=== PATIENT | female | born 1985 | race African-American/Black ===

== ENCOUNTER 2016-10-18 14:59 | Emergency (ER) | payer OTHER ==
[~2016-10-18] VITALS: Ht 162.6 cm; Wt 62.1 kg
[~2016-10-18 14:59] MED LIST: CYCLOBENZAPRINE10 MG ORAL; IBUPROFEN600 MG ORAL; IBUPROFEN600 MG PO; IMITREX50 MG ORAL; NAPROSYN500 M1 ORAL; NKM; NORCO 5-325 TA1 EAC1 ORAL; NORCO 5-325 TA1 EACH ORAL; NORCO 5-325 TA1 EACH PO; NORCO 7.5-3251 EACH PO; TAMIFLU75 MG ORAL; TRAMADOL HCL50 MG PO; VICODIN 5-5001 EACH PO; ZOFRAN ODT4 MG ORAL; ZYRTEC10 MG ORAL
--- NOTE | 2016-10-18 15:38 | Emergency Room Report ---
History of Present Illness General Chief Complaint: Chest Pain Source: Patient Present Illness HPI Patient is a 31-year-old female presented after having increased left sided chest pain. Patient was noted to have sharp pain which began approximately one hour prior to arrival. Patient reported having some cough prior day. She denied any definite fever. Patient denies recent trauma. She reports having no prior cardiac history. She states that she had nonproductive cough. She had not been having any leg pain or swelling. Patient prior history of asthma. Allergies: Coded Allergies: No Known Allergies (Unverified , 05/18/12) Patient History Past Medical History: see triage record Last Menstrual Period: 10/15/16 Now: No Reviewed Nursing Documentation: PMH: Agreed, PSxH: Agreed Nursing Documentation-PMH Hx Hypertension: Yes Hx Asthma: Yes Review of Systems All Other Systems: negative except mentioned in HPI Physical Exam Vital Signs Date Time Temp Pulse Resp B/P Pulse Ox O2 Delivery O2 Flow Rate FiO2 10/18/16 15:02 81 16 112/72 99 Room Air Sp02 EP Interpretation: reviewed, normal General Appearance: normal inspection, well appearing, no apparent distress, alert, GCS 15 Head: atraumatic ENT: normal ENT inspection, hearing grossly normal, normal voice Neck: normal inspection, full range of motion, supple, no bony tend Respiratory: normal inspection, lungs clear, normal breath sounds, no respiratory distress, no retraction, no wheezing Cardiovascular #1: regular rate, rhythm, no edema Gastrointestinal: normal inspection, normal bowel sounds, non tender, soft, no guarding, no hernia Genitourinary: no CVA tenderness Musculoskeletal: normal inspection, back normal, normal range of motion Neurologic: normal inspection, alert, responsive, speech normal Psychiatric: normal inspection, judgement/insight normal, mood/affect normal Skin: normal inspection, normal color, no rash Medical Decision Making Diagnostic Impression: Primary Impression: Pleurisy ER Course Patient presented for chest pain.Differential diagnosis included but was not limited to acute coronary syndrome, pulmonary embolism, pneumonia, aortic dissection, shingles, pneumothorax, aortic dissection, esophageal rupture, pericarditis. Because of complexity of patient's case laboratory testing and imaging studies were ordered.The EKG normal sinus rhythm with rate [address] or T wave changes.The patient shows no evident cardiac risk factors. A chest x-ray one view interpreted by me showed no evident pneumothorax normal cardiac size. The patient has no GI symptoms and this appears to be a pulmonary or chest wall pain. A d-dimer was negative. The patient is advised to follow up with primary care doctor in 1-2 days. Patient is advised to return if any worsening condition or if any changes in status that are concerning. Labs Test 10/18/16 15:45 White Blood Count 5.8 K/UL (4.8-10.8) Red Blood Count 4.11 M/UL (4.20-5.40) Hemoglobin 12.6 G/DL (12.0-16.0) Hematocrit 39.1 % (37.0-47.0) Mean Corpuscular Volume 95 FL (80-99) Mean Corpuscular Hemoglobin 30.5 PG (27.0-31.0) Mean Corpuscular Hemoglobin Concent 32.1 G/DL (32.0-36.0) Red Cell Distribution Width 12.9 % (11.6-14.8) Platelet Count 218 K/UL (150-450) Mean Platelet Volume 7.4 FL (6.5-10.1) Neutrophils (%) (Auto) 38.0 % (45.0-75.0) Lymphocytes (%) (Auto) 50.9 % (20.0-45.0) Monocytes (%) (Auto) 6.3 % (1.0-10.0) Eosinophils (%) (Auto) 3.4 % (0.0-3.0) Basophils (%) (Auto) 1.3 % (0.0-2.0) D-Dimer 62 ng/mL (<500) Sodium Level 138 mEQ/L (135-145) Potassium Level 3.8 mEQ/L (3.4-4.9) Chloride Level 101 mEQ/L (98-107) Carbon Dioxide Level 22 mEQ/L (20-30) Anion Gap 15 (5-15) Blood Urea Nitrogen 9 mg/dL (7-23) Creatinine 0.9 mg/dL (0.5-0.9) Estimat Glomerular Filtration Rate > 60 mL/min (>60) Glucose Level 87 mg/dL (74-106) Calcium Level 8.7 mg/dL (8.6-10.2) Total Bilirubin < 0.2 mg/dL (0.0-1.2) Aspartate Amino Transf (AST/SGOT) 21 U/L (5-40) Alanine Aminotransferase (ALT/SGPT) 19 U/L (3-33) Alkaline Phosphatase 35 U/L (35-104) Total Creatine Kinase 90 U/L (26-140) Creatine Kinase MB < 1.5 ng/mL (< 3.8) Creatine Kinase MB Relative Index 1.6 Troponin I < 0.30 ng/mL (<=0.30) Pro-B-Type Natriuretic Peptide 65 pg/mL (0-125) Total Protein 6.3 g/dL (6.6-8.7) Albumin 3.8 g/dL (3.5-5.2) Globulin 2.5 g/dL Albumin/Globulin Ratio 1.5 (1.0-2.7) Lipase 39 U/L (< 60) EKG Diagnostic Results Rate: normal Rhythm: NSR ST Segments: no acute changes Last Vital Signs Date Time Temp Pulse Resp B/P Pulse Ox O2 Delivery O2 Flow Rate FiO2 10/18/16 15:19 81 16 Room Air 10/18/16 15:02 112/72 99 Status: improved Disposition: HOME, SELF-CARE Condition: Stable Scripts Albuterol Sulfate* (ALBUTEROL SULFATE MDI*) 8.5 Gm Hfa.aer.ad 2 PUFF INH Q4H, #1 INH 0 Refills Prov: Adan Dela Cruz 10/18/16 Ibuprofen* (MOTRIN*) 600 Mg Tablet 600 MG ORAL Q8H Y for For Pain, #30 TAB 0 Refills Prov: Adan Dela Cruz 10/18/16 Adan Dela Cruz Oct 18, 2016 15:38
[2016-10-18 15:51] VITALS: BP 105/55
[2016-10-18 16:02] LABS: BASOPHILS % (AUTO) 1.3 % (0.0-2.0); EOSINOPHILS % (AUTO) 3.4 % (0.0-3.0); LYMPHOCYTES % (AUTO) 50.9 % (20.0-45.0); MEAN CORPUSCULAR HEMOGLOBIN 30.5 PG (27.0-31.0); MEAN CORPUSCULAR HGB CONC 32.1 G/DL (32.0-36.0); MEAN CORPUSCULAR VOLUME 95 FL (80-99); MEAN PLATELET VOLUME 7.4 FL (6.5-10.1); MONOCYTES % (AUTO) 6.3 % (1.0-10.0); PLATELET COUNT 218 K/UL (150-450); RED BLOOD COUNT 4.11 M/UL (4.20-5.40); RED CELL DISTRIBUTION WIDTH 12.9 % (11.6-14.8); WHITE BLOOD COUNT 5.8 K/UL (4.8-10.8)
[2016-10-18 16:26] LABS: ALANINE AMINOTRANSFERASE 19 U/L (3-33); ALBUMIN/GLOBULIN RATIO 1.5 (1.0-2.7); ANION GAP 15 (5-15); ASPARTATE AMINO TRANSFERASE 21 U/L (5-40); CALCIUM 8.7 mg/dL (8.6-10.2); CARBON DIOXIDE 22 mEQ/L (20-30); CHLORIDE 101 mEQ/L (98-107); CREATININE 0.9 mg/dL (0.5-0.9); GLOMERULAR FILTRATION RATE > 60 mL/min (>60); HEMOLYSIS 6; LIPASE 39 U/L (< 60); POTASSIUM 3.8 mEQ/L (3.4-4.9); SODIUM 138 mEQ/L (135-145); TOTAL PROTEIN 6.3 g/dL (6.6-8.7); TROPONIN I < 0.30 ng/mL (<=0.30)
[2016-10-18 16:37] LABS: CKMB < 1.5 ng/mL (< 3.8)
[2016-10-18] MEDS ORDERED: IBUPROFEN600 MG ORAL (17:05)
[2016-10-18] MEDS ORDERED: ALBUTEROL SULF8.5 GM INH (17:05)
[2016-10-18] MEDS ORDERED: Ketorolac 30mg Inj IV ONE (17:15)
[2016-10-18 17:34] VITALS: BP 103/56
[2016-10-18 17:45] VITALS: BP 103/56
--- NOTE | 2016-10-19 11:06 | Diagnostic Imaging Report ---
Indication: PAIN Technique: One view of the chest Comparison: For 11/08/15 Findings: Patient's hand overlies the left lower chest and upper abdomen. Lungs and pleural spaces are otherwise clear. Heart size is normal Impression: No acute process
--- NOTE | 2016-10-20 08:21 | Cardiology Report ---
APPROVED REPORT EKG Measurement Heart [id number] Normal sinus rhythm Normal ECG
== END 2016-10-18 17:45 | disposition home or self-care (01) ==
LOC: EMR 16:08
DX: R09.1 Pleurisy (principal); I10 Essential (primary) hypertension; J45.909 Unspecified asthma, uncomplicated
CPT/HCPCS: 36415; 71010; 80053; 82550; 82553; 83690; 83880; 84484; 85025; 85379; 93005; 96374; 99284; J1885

== ENCOUNTER 2017-03-21 22:24 | Emergency (ER) | payer OTHER ==
[~2017-03-21] VITALS: Ht 162.6 cm; Wt 59.0 kg
[~2017-03-21 22:24] MED LIST changes: +ALBUTEROL SULF8.5 GM INH
[2017-03-21] MEDS ORDERED: Norco 5mg/325mg tab ORAL ONE (23:00)
[2017-03-21] MEDS ORDERED: Ketorolac 30mg Inj IM ONE (23:00)
[2017-03-22] MEDS ORDERED: IMITREX100 M1 ORAL (00:03)
[2017-03-22 00:09] VITALS: BP 110/71
--- NOTE | 2017-03-22 03:09 | Emergency Room Report ---
History of Present Illness General Chief Complaint: Headache Source: Patient Present Illness HPI 31-year-old female presents ED complaining of headache. Started approximately one hour prior to arrival. Patient has history of migraines states this feels like her typical migraine. Pain is throbbing, frontal, 9/10, nonradiating. Denies photophobia, blurry vision. Denies nausea or vomiting. Denies fevers and chills. Denies neck stiffness. No other aggravating factors. Denies any other associated symptoms Allergies: Coded Allergies: No Known Allergies (Unverified , 05/18/12) Patient History Past Medical History: HTN, migraines Past Surgical History: none Pertinent Family History: none Social History: Denies: smoking, alcohol use, drug use Last Menstrual Period: 2 weeks ago Now: No Immunizations: UTD Reviewed Nursing Documentation: PMH: Agreed, PSxH: Agreed Nursing Documentation-PMH Past Medical History: No History, Except For Hx Hypertension: Yes Hx Asthma: Yes Hx Neurological Problems: No - Migraines Review of Systems All Other Systems: negative except mentioned in HPI Physical Exam Vital Signs Date Time Temp Pulse Resp B/P (MAP) Pulse Ox O2 Delivery O2 Flow Rate FiO2 03/21/17 22:30 98.2 83 18 112/70 98 Room Air Sp02 EP Interpretation: reviewed, normal General Appearance: no apparent distress, alert, GCS 15, non-toxic Head: normocephalic, atraumatic Eyes: bilateral eye normal inspection, bilateral eye PERRL, bilateral eye EOMI ENT: hearing grossly normal, normal pharynx, no angioedema, normal voice Neck: full range of motion, no meningismus, supple/symm/no masses Respiratory: chest non-tender, lungs clear, normal breath sounds, speaking full sentences Cardiovascular #1: regular rate, rhythm, no edema Cardiovascular #2: 2+ carotid (R), 2+ carotid (L), 2+ radial (R), 2+ radial (L) , 2+ dorsalis pedis (R), 2+ dorsalis pedis (L) Gastrointestinal: normal bowel sounds, non tender, soft, non-distended, no guarding, no rebound Rectal: deferred Genitourinary: normal inspection, no CVA tenderness Musculoskeletal: back normal, gait/station normal, normal range of motion, non- tender Neurologic: alert, oriented x3, responsive, motor strength/tone normal, sensory intact, speech normal Psychiatric: judgement/insight normal, memory normal, mood/affect normal, no suicidal/homicidal ideation Reflexes: 3+ bicep (R), 3+ bicep (L), 3+ tricep (R), 3+ tricep (L), 3+ knee (R) , 3+ knee (L) Skin: normal color, no rash, warm/dry, well hydrated Lymphatic: no adenopathy Medical Decision Making Diagnostic Impression: Primary Impression: Migraine Qualified Codes: G43.909 - Migraine, unspecified, not intractable, without status migrainosus ER Course Hospital Course 31-year-old female presents to ED complaining of headaches x 1 hour. h/o migraine Differential diagnoses include: tension headache, migraine, dehydration, intracranial bleed Clinical course Patient placed on stretcher. After initial history and physical I reviewed EMR patient responds well to Toradol and [place]. I asked the patient and she states she preferred those medications. Patient given Toradol and [place] and on reassessment headache is improved. Patient is requesting refill of her Imitrex. States she will followup with her neurologist this week given the lack of fever, nuchal rigidity or neurological findings my suspicion for intracranial pathology is low patient be safely discharged to home. i. I feel this is a highly complex case requiring extensive working including EKG/Rhythm strip, Xray/CT/US, Blood/urine lab work, repeat exams while in ED, and administration of strong opiates/narcotics for pain control, admission to hospital or close patient follow up. Diagnosis - migraine stable and discharged to home with Rx Imitrex. f/up with PMD. return to ED if symptoms recur/worsen. Last Vital Signs Date Time Temp Pulse Resp B/P (MAP) Pulse Ox O2 Delivery O2 Flow Rate FiO2 03/22/17 00:09 98.2 78 18 110/72 98 Room Air Status: improved Disposition: HOME, SELF-CARE Condition: Stable Scripts Sumatriptan Succinate (Imitrex) 100 Mg Tablet 100 MG ORAL DAILY, #20 EA Prov: WILLIAM KRISHNAN M.D. 03/22/17 Referrals: [facility] (PCP) Patient Instructions: Migraine Headache WILLIAM KRISHNAN M.D. Mar 22, 2017 03:09
== END 2017-03-22 00:08 | disposition home or self-care (01) ==
LOC: EMR 23:44
DX: G43.909 Migraine, unspecified, not intractable, without status migrainosus (principal); I10 Essential (primary) hypertension; J45.909 Unspecified asthma, uncomplicated
CPT/HCPCS: 96372; 99284; J1885

== ENCOUNTER 2017-04-19 16:02 | Emergency (ER) | payer OTHER ==
[~2017-04-19] VITALS: Ht 162.6 cm; Wt 59.0 kg
[~2017-04-19 16:02] MED LIST changes: +IMITREX100 M1 ORAL
[2017-04-19 16:20] VITALS: BP 106/75
[2017-04-19] MEDS ORDERED: ROBAXIN-750750 MG PO (16:29)
[2017-04-19 16:35] VITALS: BP 106/75
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
== END 2017-04-19 17:35 | disposition home or self-care (01) ==
LOC: EMR 16:38
DX: M25.571 Pain in right ankle and joints of right foot (principal); V49.9XXA Car occupant (driver) (passenger) injured in unspecified traffic accident, initial encounter; Y93.9 Activity, unspecified; Y92.410 Unspecified street and highway as the place of occurrence of the external cause; I10 Essential (primary) hypertension
CPT/HCPCS: 99282

== ENCOUNTER 2018-03-20 10:32 | Emergency (ER) | payer OTHER ==
[~2018-03-20] VITALS: Ht 162.6 cm; Wt 62.1 kg
[~2018-03-20 10:32] MED LIST changes: +ROBAXIN-750750 MG PO
[2018-03-20 10:44] VITALS: BP 106/71
[2018-03-20] MEDS ORDERED: Methocarbamol 750mg tab ORAL ONE (11:15)
[2018-03-20] MEDS ORDERED: Ketorolac 30mg Inj IM ONE (11:15)
[2018-03-20] MEDS ORDERED: IBUPROFEN600 MG ORAL (11:25)
[2018-03-20] MEDS ORDERED: LIDODERM700 M1 TOPIC (11:25)
[2018-03-20] MEDS ORDERED: ROBAXIN-750750 MG PO (11:25)
[2018-03-20] MEDS ORDERED: NORCO 5-325 TA1 EACH ORAL (11:25)
[2018-03-20 11:31] VITALS: BP 106/71
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
== END 2018-03-20 11:32 | disposition home or self-care (01) ==
LOC: EMR 11:09
DX: S16.1XXA Strain of muscle, fascia and tendon at neck level, initial encounter (principal); I10 Essential (primary) hypertension; V49.88XA Car occupant (driver) (passenger) injured in other specified transport accidents, initial encounter; Y92.410 Unspecified street and highway as the place of occurrence of the external cause; Y93.9 Activity, unspecified; Y99.9 Unspecified external cause status
CPT/HCPCS: 96372; 99283; J1885

== ENCOUNTER 2018-08-01 12:56 | Emergency (ER) | payer OTHER ==
[~2018-08-01] VITALS: Ht 162.6 cm; Wt 62.1 kg
[~2018-08-01 12:56] MED LIST changes: +LIDODERM700 M1 TOPIC
--- NOTE | 2018-08-01 13:40 | NUR ---
ED Nurse Note: A/OX4. AMBULATED IN TO ER DUE TO DIZZINESS AND RIGHT SIDED HEADACHE, N/V. DENIES CP AND SOB.
[2018-08-01] MEDS ORDERED: Meclizine 25mg tab ORAL ONE (13:45)
[2018-08-01 14:00] VITALS: BP 134/84
[2018-08-01 14:03] LABS: APPEARANCE,URINE CLEAR; BILIRUBIN, URINE NEGATIVE (NEGATIVE); GLUCOSE, URINE (UA) NEGATIVE (NEGATIVE); KETONES,URINE 1+ (NEGATIVE); LEUKOCYTE ESTERASE ,URINE 1+ (NEGATIVE); NITRITE,URINE NEGATIVE (NEGATIVE); PH,URINE 6 (4.5-8.0); PROTEIN,URINE NEGATIVE (NEGATIVE); UROBILINOGEN,URINE NORMAL MG/DL (0.0-1.0)
[2018-08-01 14:06] LABS: COLOR,URINE YELLOW
--- NOTE | 2018-08-01 14:52 | Diagnostic Imaging Report ---
Indications: Dizziness and right-sided headache, nausea, vomiting Technique: Spiral acquisitions obtained through the brain. Angled axial and coronal 5 x 5 mm slices were reconstructed. Total dose length product 1305.71 mGycm. CTDI vol(s) 70.38 mGy. Dose reduction achieved using automated exposure control Comparison: 07/01/2015 Findings: No acute intracranial hemorrhage or edema, mass effect, nor midline shift. Normal marino-white differentiation. Normal-sized ventricles and extra axial CSF spaces. Intact calvarium. Visualized orbits are unremarkable. There is ethmoid sinus disease. No significant interim change Impression: Negative for acute intracranial bleed or mass effect. Minimal ethmoid sinus disease again incidentally noted The CT scanner at [facility] is accredited by the [employer] and the scans are performed using protocols designed to limit radiation exposure to as low as reasonably achievable to attain images of sufficient resolution adequate for diagnostic evaluation.
[2018-08-01 15:30] LABS: BASOPHILS % (AUTO) 2.1 % (0.0-2.0); EOSINOPHILS % (AUTO) 1.8 % (0.0-3.0); HEMATOCRIT 45.9 % (37.0-47.0); HEMOGLOBIN 14.9 G/DL (12.0-16.0); LYMPHOCYTES % (AUTO) 33.4 % (20.0-45.0); MEAN CORPUSCULAR VOLUME 95 FL (80-99); NEUTROPHILS % (AUTO) 53.8 % (45.0-75.0); PLATELET COUNT 266 K/UL (150-450); RED BLOOD COUNT 4.83 M/UL (4.20-5.40); RED CELL DISTRIBUTION WIDTH 13.3 % (11.6-14.8)
[2018-08-01 15:34] LABS: ANION GAP 10 mmol/L (5-15); BLOOD UREA NITROGEN 9 mg/dL (7-18); CALCIUM 9.3 MG/DL (8.5-10.1); CARBON DIOXIDE 25 MMOL/L (21-32); CHLORIDE 103 MMOL/L (98-107); CREATININE 0.9 MG/DL (0.55-1.30); POTASSIUM 4.4 MMOL/L (3.5-5.1); SODIUM 138 MMOL/L (136-145)
[2018-08-01 15:38] LABS: ALANINE AMINOTRANSFERASE 28 U/L (12-78); ALBUMIN 4.2 G/DL (3.4-5.0); ALBUMIN/GLOBULIN RATIO 1.1 (1.0-2.7); ALKALINE PHOSPHATASE 49 U/L (46-116); ASPARTATE AMINO TRANSFERASE 24 U/L (15-37); BILIRUBIN,TOTAL 0.5 MG/DL (0.2-1.0)
--- NOTE | 2018-08-01 16:22 | Emergency Room Report ---
History of Present Illness General Chief Complaint: General Complaint Present Illness HPI 32-year-old female patient presents the ER complaining of vertigo and dizziness symptoms for the past 3 days. Reports history of similar symptoms 3 months ago. Denies vomiting or vision changes. Denies tinnitus. Reports sensation of herself and the room spinning, states that changes. Reports dizziness worse with standing up or sitting down. Reports also felt dizziness while in the shower. Denies chest pain, shortness of breath. Denies history of diabetes. Denies vomiting or diarrhea. Denies abdominal pain. Denies history of heart disease. Denies photophobia or phonophobia. Denies other aggravating or relieving factors. Allergies: Coded Allergies: No Known Allergies (Unverified , 05/18/12) Patient History Past Medical History: see triage record Last Menstrual Period: 1-19 Now: No Reviewed Nursing Documentation: PMH: Agreed; PSxH: Agreed Nursing Documentation-PMH Past Medical History: No History, Except For Hx Hypertension: Yes Hx Asthma: Yes History Of Psychiatric Problem: Yes - anxiety Hx Neurological Problems: Yes - Migraines Review of Systems All Other Systems: negative except mentioned in HPI Physical Exam Vital Signs Date Time Temp Pulse Resp B/P (MAP) Pulse Ox O2 Delivery O2 Flow Rate FiO2 08/01/18 13:36 98.6 91 18 134/84 98 Room Air Sp02 EP Interpretation: reviewed, normal General Appearance: well appearing, no apparent distress, alert, GCS 15, non- toxic Head: normocephalic, atraumatic Eyes: bilateral eye normal inspection, bilateral eye PERRL ENT: hearing grossly normal, normal pharynx, no angioedema, normal voice, TMs + canals normal, uvula midline, moist mucus membranes, nasal congestion Neck: full range of motion, no bony tend Respiratory: lungs clear, normal breath sounds, no rhonchi, no respiratory distress, no accessory muscle use, no wheezing, speaking full sentences Cardiovascular #1: regular rate, rhythm, no edema Gastrointestinal: non tender, soft, no mass, non-distended, no guarding, no rebound Genitourinary: no CVA tenderness Musculoskeletal: back normal, digits/nails normal, gait/station normal, normal range of motion, non-tender Neurologic: alert, oriented x3, responsive, poultry inspector III-XII nml as tested, motor strength/tone normal, sensory intact, cerebellar normal, normal gait, speech normal Psychiatric: mood/affect normal Skin: no rash Lymphatic: no adenopathy Medical Decision Making PA Attestation Dr. Dela Cruz is my supervising Physician whom patient management has been discussed with. Diagnostic Impression: Primary Impression: Vertigo Additional Impression: Orthostatic dizziness ER Course Pt. presents to the ED c/o dizziness and vertigo symptoms. Ddx considered but are not limited to orthostatic dizziness, vertigo, hypoglycemia, electrolyte abnormality, arrhythmia, medication side effect, , anemia. Denies chest pain or shortness of breath, no cardiac risk factors, does not require cardiac workup at this time. Vital signs: are WNL, pt. is afebrile ER COURSE: Provided with meclizine. Physical exam benign. Orthostatic vitals showed no orthostatic hypotension, provide with IV fluids, will treat for orthostatic dizziness. EKG shows no ST elevations or T wave inversions. No suspicion for [place]. CBC and CMP shows normal H&H, no electrolyte abnormalities, blood glucose within normal limits. Accu-Chek within normal limits. UA unremarkable Urine negative Patient able to tolerate p.o. fluids and food while in the ER. CT head negative for acute disease, mild ethmoid sinus disease noted, advised patient take Claritin. Advised patient follow-up with neurology to discuss vertigo and dizziness symptoms. DISCHARGE: At this time pt is stable for d/c to home. Patient is resting comfortably, in no acute distress, nontoxic appearing, talking without difficulty. Patient to take medications as instructed Will provide with patient care instructions and any necessary prescriptions. Care plan and follow-up instructions provided. Patient instructed to follow-up with primary care provider in 3 - 5 days. Patient questions asked and answered. Patient reports understanding and agreement to treatment plan. ER precautions given. Patient instructed to return to ER immediately for any new or worsening of symptoms including but not limited to increasing SOB, persistent fever, chest pain, intractable vomiting. - Please note that this Emergency Department Report was dictated using [employer] expert technology software, occasionally this can lead to erroneous entry secondary to interpretation by the dictation equipment. Labs Test 08/01/18 13:50 08/01/18 14:50 Urine Color Yellow Urine Appearance Clear Urine pH 6 (4.5-8.0) Urine Specific [place] 1.020 (1.005-1.035) Urine Protein Negative (NEGATIVE) Urine Glucose (UA) Negative (NEGATIVE) Urine Ketones 1+ (NEGATIVE) Urine Blood 2+ (NEGATIVE) Urine Nitrite Negative (NEGATIVE) Urine Bilirubin Negative (NEGATIVE) Urine Urobilinogen Normal MG/DL (0.0-1.0) Urine Leukocyte Esterase 1+ (NEGATIVE) Urine RBC 2-4 /HPF (0 - 2) Urine WBC 0-2 /HPF (0 - 2) Urine Squamous Epithelial Cells Few /LPF (NONE/OCC) Urine Bacteria Few /HPF (NONE) Urine HCG, Qualitative Negative (NEGATIVE) White Blood Count 6.0 K/UL (4.8-10.8) Red Blood Count 4.83 M/UL (4.20-5.40) Hemoglobin 14.9 G/DL (12.0-16.0) Hematocrit 45.9 % (37.0-47.0) Mean Corpuscular Volume 95 FL (80-99) Mean Corpuscular Hemoglobin 30.9 PG (27.0-31.0) Mean Corpuscular Hemoglobin Concent 32.5 G/DL (32.0-36.0) Red Cell Distribution Width 13.3 % (11.6-14.8) Platelet Count 266 K/UL (150-450) Mean Platelet Volume 6.4 FL (6.5-10.1) Neutrophils (%) (Auto) 53.8 % (45.0-75.0) Lymphocytes (%) (Auto) 33.4 % (20.0-45.0) Monocytes (%) (Auto) 9.0 % (1.0-10.0) Eosinophils (%) (Auto) 1.8 % (0.0-3.0) Basophils (%) (Auto) 2.1 % (0.0-2.0) Sodium Level 138 MMOL/L (136-145) Potassium Level 4.4 MMOL/L (3.5-5.1) Chloride Level 103 MMOL/L (98-107) Carbon Dioxide Level 25 MMOL/L (21-32) Anion Gap 10 mmol/L (5-15) Blood Urea Nitrogen 9 mg/dL (7-18) Creatinine 0.9 MG/DL (0.55-1.30) Estimat Glomerular Filtration Rate > 60 mL/min (>60) Glucose Level 93 MG/DL (74-106) Calcium Level 9.3 MG/DL (8.5-10.1) Total Bilirubin 0.5 MG/DL (0.2-1.0) Aspartate Amino Transf (AST/SGOT) 24 U/L (15-37) Alanine Aminotransferase (ALT/SGPT) 28 U/L (12-78) Alkaline Phosphatase 49 U/L (46-116) Total Protein 8.1 G/DL (6.4-8.2) Albumin 4.2 G/DL (3.4-5.0) Globulin 3.9 g/dL Albumin/Globulin Ratio 1.1 (1.0-2.7) EKG Diagnostic Results Rate: normal Rhythm: NSR ST Segments: no acute changes ASA given to the pt in ED: No PA Scribe Text Santiago Randall PA-C Rhythm Strip Diag. Results EP Interpretation: yes Rate: 78 Rhythm: NSR, no PVC's, no ectopy PA Scribe Text Santiago Randall PA-C CT/MRI/US Diagnostic Results CT/MRI/US Diagnostic Results : Imaging Test Ordered: CT head Impression Impression: Negative for acute intracranial bleed or mass effect. Minimal ethmoid sinus disease again incidentally noted Last Vital Signs Date Time Temp Pulse Resp B/P (MAP) Pulse Ox O2 Delivery O2 Flow Rate FiO2 08/01/18 14:00 91 18 Room Air 08/01/18 14:00 98.6 134/84 98 Status: improved Disposition: HOME, SELF-CARE Condition: Stable Scripts Meclizine Hcl* (MECLIZINE*) 25 Mg Tablet 25 MG ORAL THREE TIMES A DAY, #25 TAB Prov: Lavelle Randall 08/01/18 Referrals: [facility],REFERR[facility] (PCP) Patient Instructions: Dizziness, [id number], Orthostatic Hypotension, Vertigo , [id number] Additional Instructions: Followup with primary care provider in 3 -5 days. Discuss referral to neurology specialist. Drink plenty of fluids. Take medications as directed. Patient questions asked and answered. ER precautions given, patient instructed to return to ER immediately for any new or worsening of symptoms. Lavelle Randall Aug 01, 2018 16:22
[2018-08-01] MEDS ORDERED: MECLIZINE HCL25 MG ORAL (16:34)
[2018-08-01 16:41] VITALS: BP 112/58
--- NOTE | 2018-08-01 16:42 | NUR ---
ED Nurse Note: A/Ox4. Pt is cleared by ARCADIO Henderson. DC instruction and prescriptions given, pt verbalized understanding. IV/ID wristband removed. All belongings taken by pt. Denies pain at this time. Pt ambulated out of ER with steady gait.
== END 2018-08-01 16:42 | disposition home or self-care (01) ==
LOC: EMR 13:59
DX: R42 Dizziness and giddiness (principal); I10 Essential (primary) hypertension; J45.909 Unspecified asthma, uncomplicated; F41.9 Anxiety disorder, unspecified
CPT/HCPCS: 36415; 70450; 80053; 81003; 81025; 82962; 85025; 93005; 96374; 99284; J2405; J7040